=== PATIENT | female | born 1950 | race Caucasian/White ===

== ENCOUNTER → 2017-10-30 | Outpatient (CLI) | payer OTHER, MEDICAID | LOC: FLAB 12:22 | PROVIDERS: ATTEND Specialist | DX: N20.0 Calculus of kidney (principal); Z93.6 Other artificial openings of urinary tract status ==

== ENCOUNTER 2017-12-04 06:21 | Observation (INO) | payer OTHER, MEDICAID ==
[2017-12-04] MEDS ORDERED: ceFAZolin 2 GM/DEXTROSE 100 ML IV ONE (06:47)
[2017-12-04] MEDS ORDERED: LR 1,000 ML IV ONE (06:48)
[2017-12-04] MEDS ORDERED: LIDOCAINE 1% 2 ML INJ ID PRN (06:48)
[2017-12-04] MEDS ORDERED: ceFAZolin 2 GM/SWFI 2 GM/20 ML SYR IVP ONE (07:00)
[2017-12-04] MEDS ORDERED: MINERAL OIL 10 ML VIAL ONE (07:59)
[2017-12-04] MEDS ORDERED: IOPAMIDOL (ISOVUE-300) 100 ML BTL ONE (08:00)
--- NOTE | 2017-12-04 08:41 | PDANEPAE ---
ANE Past Medical History - Cardiovascular History Hx Hypertension: Yes Hx Arrhythmias: No Hx Chest Pain: No Hx Coronary Artery / Peripheral Vascular Disease: No Hx CHF / Valvular Disease: No Hx Palpitations: No - Pulmonary History Hx COPD: No Hx Asthma/Reactive Airway Disease: No Hx Recent Upper Respiratory Infection: No Hx Oxygen in Use at Home: No Hx Sleep Apnea: No Sleep Apnea Screening Result - Last Documented: Positive - Neurologic History Hx Cerebrovascular Accident: No Hx Seizures: No Hx Dementia: No - Endocrine History Hx Diabetes: No - Renal History Hx Renal Disorders: No - Liver History Hx Hepatic Disorders: No - Neurological & Psychiatric Hx Hx Neurological and Psychiatric Disorders: Yes Neurological / Psychiatric History Comment: schitzophrenic, depression - Cancer History Hx Cancer: No - Congenital Disorder History Hx Congenital Disorders: No - GI History Hx Gastrointestinal Disorders: No - Other Health History Other Health History: anemia. pt is C-Diff positive - Chronic Pain History Chronic Pain: Yes (back) - Surgical History Prior Surgeries: back surgery x2 ANE Review of Systems Review of Systems: - Exercise capacity METS (RN): 4 METS ANE Patient History - Allergies Allergies/Adverse Reactions: codeine Allergy (Verified 11/17/17 10:05) Unknown - Home Medications Home Medications: Acetaminophen 11/18/17 [Last Taken Unknown] Acidophilus Capsule 11/18/17 [Last Taken Unknown] Aripiprazole 11/18/17 [Last Taken Unknown] Bethanechol Chloride 11/18/17 [Last Taken Unknown] Cholecalciferol (Vitamin D3) 11/18/17 [Last Taken Unknown] Docusate Sodium 11/18/17 [Last Taken Unknown] Ferrous Sulfate 11/18/17 [Last Taken Unknown] Fluticasone Propionate 11/18/17 [Last Taken Unknown] Furosemide 11/18/17 [Last Taken Unknown] Kaopectate 11/18/17 [Last Taken Unknown] Levothyroxine 11/18/17 [Last Taken Unknown] Metoprolol Tartrate 11/18/17 [Last Taken Unknown] Milk of Magnesia 11/18/17 [Last Taken Unknown] Morphine Sulfate ER 11/18/17 [Last Taken Unknown] Multivitamins 11/18/17 [Last Taken Unknown] Oxycodone HCl 11/18/17 [Last Taken Unknown] Senokot 11/18/17 [Last Taken Unknown] Tums 500MG (*) 11/18/17 [Last Taken Unknown] - NPO status NPO Since - Liquids (Date): 12/03/17 NPO Since - Liquids (Time): 20:00 NPO Since - Solids (Date): 12/03/17 NPO Since - Solids (Time): 20:00 - Smoking Hx Smoking Status: Never smoked - Family Anes Hx Family Hx Anesthesia Complications: none ANE Labs/Vital Signs - Labs Result Diagrams: 12/04/17 06:47 - Vital Signs Blood Pressure: 122/70 Heart Rate: 78 Respiratory Rate: 12 O2 Sat (%): 93 Height: 152.4 cm Weight: 89.811 kg ANE Physical Exam - Airway Mallampati Score: Class 2 Mouth exam: poor dentition - ASA Status ASA Status: III ANE Anesthesia Plan Anesthesia Plan: general endotracheal anesthesia
--- NOTE | 2017-12-04 08:47 | PDHPUP ---
History & Physical Update H&P update statement: This history and physical update is based on an assessment of the patient which was completed after admission or registration (within 24 hours), but prior to the surgery/procedure. H&P update: no change in patient's condition since H&P completed
[2017-12-04] MEDS ORDERED: MIDAZOLAM 2 MG/2 ML VIAL ONE (08:50)
[2017-12-04] MEDS ORDERED: fentaNYL 100 MCG/2 ML INJ ONE ×2 (08:53→12:01)
[2017-12-04] MEDS ORDERED: PROPOFOL 200 MG/20 ML VIAL ONE (08:53)
[2017-12-04] MEDS ORDERED: ONDANSETRON 4 MG/2 ML VIAL ONE ×2 (08:54→12:49)
[2017-12-04] MEDS ORDERED: ROCURONIUM 50 MG/5 ML VIAL ONE (08:54)
[2017-12-04] MEDS ORDERED: METOCLOPRAMIDE 10 MG/2 ML VIAL ONE (08:54)
[2017-12-04] MEDS ORDERED: BACITRACIN ZINC 14.2 GM OINTTUBE TP ONE (10:40)
--- NOTE | 2017-12-04 11:38 | POSTOPPROG ---
Post Op Note Date of Operation: 12/04/17 Surgeon: Britton Cortez (# [id number]) Anesthesia: GET(General Endotracheal) Pre-op Diagnosis: Large volume right nephrolithiasis > 2 cm Post-op Diagnosis: Large volume right nephrolithiasis > 2 cm Procedure: 1. Cysto, balloon catheter placement 2. Right PCNL w/ fluoro guidance Findings: 3. Right neph. tube placement Findings -- see op note Inf/Abcess present in the surg proc area at time of surgery?: No EBL: Minimal Complications: None Drains: Nephrostomy (14 Fr. right) Specimen(s): Right kidney stone
[2017-12-04] MEDS ORDERED: NALOXONE HCL 0.4 MG/ML INJ IVP PRN (11:42)
[2017-12-04] MEDS ORDERED: ONDANSETRON 4 MG/2 ML VIAL IVP PRN (11:42)
[2017-12-04] MEDS ORDERED: fentaNYL 100 MCG/2 ML INJ IVP PRN (11:42)
[2017-12-04] MEDS ORDERED: LR 500 ML IV PRN (11:42)
--- NOTE | 2017-12-04 11:43 | POSTANESTH ---
Post Anesthetic Evaluation Cardiovascular Status: Normal, Stable Respiratory Status: Normal, Stable Level of Consciousness/Mental Status: Can Participate in Eval Pain Control: Adequate, Prn Tx Ordered Nausea/Vomiting Control: Adequate, Prn Tx Ordered Complications Possibly Related to Anesthesia: None Noted
--- NOTE | 2017-12-04 14:10 | GOP ---
[f rep st] OPERATIVE REPORT DATE OF OPERATION: 12/04/2017 SURGEON: Britton Cortez MD ANESTHESIA: General endotracheal. PREOPERATIVE DIAGNOSIS: 1. Bilateral large-volume nephrolithiasis. 2. History of Escherichia coli bacteremia and septic shock, status post bilateral nephrostomy tube placement 3. Clostridium difficile colitis. POSTOPERATIVE DIAGNOSIS: 1. Bilateral large-volume nephrolithiasis. 2. History of Escherichia coli bacteremia and septic shock, status post bilateral nephrostomy tube placement. 3. Clostridium difficile colitis. PROCEDURE PERFORMED: 1. Cystourethroscopy, right retrograde pyelography. 2. Right ureteral balloon occlusion catheter placement. 3. Right percutaneous nephrostolithotomy greater than 2 cm with less than 1 hour of fluoroscopic guidance. 4. Right-sided nephrostomy tube placement. FINDINGS: Large calculus within the right renal pelvis, measuring at least 3 cm in length. Stone was ablated as mentioned in the body of the operative report. SPECIMENS: Right renal calculus fragments. ESTIMATED BLOOD LOSS: Minimal. INDICATIONS: This woman developed E coli bacteremia and septic shock approximately 1 month ago. She was admitted and treated at [facility]. At that time, she was found to have large-volume bilateral nephrolithiasis and underwent bilateral nephrostomy tube placement at that time. She has maintained indwelling nephrostomy tubes during the recovery of her infection. She now presents for operative management of the right-sided renal calculi. She was diagnosed with C difficile colitis approximately 1 week ago and was started on oral vancomycin about 5 days ago. The indications for the procedures as well as potential risks and complications were discussed with the patient and her sister preoperatively. They appeared to understand, their questions were answered, and they wished to proceed. Written informed surgical consent was thereafter obtained. DESCRIPTION OF PROCEDURE: The patient was brought to the operating room and administered general endotracheal anesthesia. She was carefully placed in the dorsal lithotomy position on the cystoscopic table with Viral stirrups. The genital area was sterilely prepped with Betadine scrub and paint, then draped in the usual sterile fashion. There was noted to be significant excoriation of the perineal region in general, including the labia and the medial buttocks region. I performed cystoscopy with a 30-degree lens and a 22-[place]izen [place] sheath. The urethra was unremarkable. Bladder revealed no areas of abnormal erythema, tumors, or foreign bodies. Ureteral orifices were normal in regards to shape and position along the trigone. I used a 5-[place]izen [place] open-ended ureteral catheter to perform retrograde pyelography on the right side using C-arm fluoroscopic guidance. This revealed no abnormalities of the ureter. There was a large filling defect in the renal pelvis consistent with the calculus seen on preoperative imaging. Previously placed nephrostomy tube was seen within a calyx in the lower pole. I then advanced a 0.035 inch superstiff Amplatz guidewire, through the ureteral catheter, and positioned it within the renal collecting system as seen fluoroscopically. The ureteral catheter and cystoscope were then removed while keeping the guidewire in place. A balloon occlusion catheter was then advanced over the Amplatz guidewire using fluoroscopic guidance and positioned just distal to the ureteropelvic junction. The balloon on the occlusion catheter was then inflated. The existing guidewire was then removed. I then placed a 16 -Citizen [place] Abraham catheter into the bladder. The balloon occlusion catheter was then secured to the Abraham using half-inch Steri-Strips. This completed the cystoscopic portion of the procedure. The patient was then turned over into the prone position. All appropriate pressure points were padded. The right back and nephrostomy tube were sterilely prepped and draped in standard fashion. Dr. Wells from Interventional Radiology then proceeded to place a working nephroscopic sheath into the right renal collecting system. He also placed 2 guidewires, one that went down the ureter toward the bladder, and the other was terminating in a right upper pole calyx. Once the nephroscopic working sheath was in place, rigid nephroscopy was performed. I was able to identify the large calculus within the renal pelvis. I used the ultrasonic Lithotripter to fragment the stone. The stone was quite friable and had a chalk-like consistency. I was able to fragment it fairly easily and remove the fragments either through the ultrasonic Lithotripter or with grasping forceps. After removing the stone within the renal pelvis, I used a flexible cystoscope to perform renoscopy. There appeared to be 1 calcification seen on fluoroscopic imaging within another calyx of the lower pole. I attempted to find this calcification, but was unable to visualize it. I examined every visible calyx in the upper pole, mid pole, and upper pole. No significant remaining calculus disease was identified. It is possible that this calcification seen on fluoroscopic imaging was in fact within the renal cortex, as it was not definitively seen within the collecting system. At this point, the scope was removed, as well as the nephroscopic sheath. I advanced a 14-[place] nephrostomy tube, under fluoroscopic guidance, over the guidewire that extended down toward the bladder. The nephrostomy tube was positioned within the renal pelvis and the pigtail deployed at that location. It was locked into place. The nephrostomy tube was flushed and irrigated without complication. It was a light pink return pink. Injection of contrast through the nephrostomy tube confirmed placement within the renal pelvis. The nephrostomy tube was secured to the skin with a 2-0 silk suture. It was then dressed with a ski slope dressing and connected to bag drainage. The ureteral balloon occlusion catheter was then deflated and removed. The Abraham catheter was kept in place. The patient was then turned back over to the supine position. She was awakened, extubated, transferred to her bed, then taken to the recovery room. She tolerated the procedure well overall. COMPLICATIONS: None. DISPOSITION: She was transferred to the recovery room in stable condition and will be admitted to the hospitalist service for postoperative care. Arrangements will then be made by my office for outpatient right-sided nephrostogram and probable right-sided nephrostomy tube removal early next week. Also, at that same time, I will have Interventional Radiology replace the left-sided nephrostomy tube. /[id number]/MODL MTDD
[2017-12-04] MEDS: VANCOMYCIN 125 MG/2.5 ML UDL PO SCH ×3 (15:41→20:19)
[2017-12-04] MEDS ORDERED: BISMUTH SUBSALICYLATE 524 MG/30 ML UDL PO PRN (16:56)
[2017-12-04] MEDS ORDERED: MAGNESIUM HYDROXIDE 30 ML UDCUP PO PRN (16:56)
[2017-12-04] MEDS ORDERED: CALCIUM CARBONATE 500 MG CHEWABLE TAB PO PRN (16:56)
[2017-12-04] MEDS: ceFAZolin 2 GM/SWFI 2 GM/20 ML SYR IVP SCH (17:09)
[2017-12-04] MEDS ORDERED: MAG HYDROX/AL HYDROX/SIMETH 30 ML UDCUP PO PRN (17:15)
[2017-12-04] MEDS ORDERED: ceFAZolin 2 GM/DEXTROSE 100 ML IV SCH (17:30)
[2017-12-04] MEDS: OXYCODONE/APAP 5/325 TAB PO PRN ×2 (18:57→19:40)
[2017-12-04] MEDS: METOPROLOL TARTRATE 25 MG TAB PO SCH (20:19)
[2017-12-04] MEDS: BETHANECHOL 5 MG TAB PO SCH (20:19)
[2017-12-04] MEDS: FERROUS SULFATE 325 MG TAB PO SCH (20:19)
[2017-12-04] MEDS: morphINE SR 15 MG TAB PO SCH (20:19)
[2017-12-04] MEDS: DOCUSATE SODIUM 100 MG CAP PO SCH (20:19)
[2017-12-04] MEDS ORDERED: ARIPiprazole 10 MG TAB PO SCH (21:00)
--- NOTE | 2017-12-04 21:15 | GHP ---
[f rep st] HISTORY AND PHYSICAL DATE OF ADMISSION: 12/04/2017 CHIEF COMPLAINT: Kidney stones. HISTORY OF PRESENT ILLNESS: A pleasant 67-year-old female with history of large volume bilateral kidney stones and E coli bacteremia and septic shock a month ago at [facility], status post bilateral nephrostomy tube placements. Currently on treatment for C difficile colitis. Today, underwent cystourethroscopy, right retrograde pyelography and right renal stone ablation. After hospitalization at [facility], she discharged to rehab and now at home att [facility]. She has a roommate. She has been doing well. No fevers, chills, or sweats. No kidney pain or suprapubic tenderness. She is having soft stools, sometimes up to 6 times a day. No nausea, vomiting. No chest pain or shortness of breath. REVIEW OF SYSTEMS: I completed a 10-point review of systems, negative except as noted in HPI. PAST MEDICAL HISTORY: 1. E coli bacteremia, septic shock at [facility] a month ago due to bilateral kidney stones. 2. C diff colitis, on treatment, bipolar disorder, hypothyroid, schizophrenia, chronic lower back pain, GERD, hypertension. PAST SURGICAL HISTORY: Six back surgeries, bilateral nephrostomy tube placement. SOCIAL HISTORY: Lives in [facility] in [place]. Has a roommate. No alcohol, tobacco, or illicits. FAMILY HISTORY: Noncontributory. HOME MEDICATIONS: Simethicone, herbal supplement, Tums, Milk of Magnesia, Tylenol, bismuth, oxycodone 10 mg q.4 hours p.r.n., MS Carmen Contin 50 mg b.i.d., Urecholine 5 mg t.i.d., metoprolol 25 mg b.i.d., iron 325 mg b.i.d., levothyroxine 125 mcg, Colace, senna, Lasix 40 mg daily, Flonase, multivitamin, vitamin D3. ALLERGIES: Codeine. PHYSICAL EXAMINATION: VITAL SIGNS: Temperature 36.8, blood pressure 120/68, heart rate 74, respirations 16, 91% on 1 L. GENERAL: Obese female, lying in bed with a washcloth on her towel , mildly somnolent, but opens eyes to voice. HEENT: Pupils small, but round and reactive. CV: Regular rate and rhythm. No murmurs, gallops, or rubs. LUNGS: Clear to auscultation bilaterally. ABDOMEN: Soft, nontender, nondistended. Positive bowel sounds. : Bilateral nephrostomy tubes. Abraham in place. MUSCULOSKELETAL: Moving all 4 extremities. NEUROLOGIC: 2 through 12 intact. PSYCH: Alert and oriented x3. Flat affect. LABORATORY DATA: WBCs 5, hemoglobin 10, hematocrit 34, platelets 138. Stone composition pending. I do not have old labs to compare. ASSESSMENT AND PLAN: 1. Bilateral kidney stones: s/p ablation of right kidney stone. She is comfortable at this time. Follow up with Dr. Cortez. 2. History of E coli bacteremia: a month ago at [facility] with septic shock. Currently afebrile, no fevers. 3. C difficile colitis. Continue vancomycin. 4. Hypertension. Home medications. 5. Bipolar disorder. Continue home medications. 6. Gastroesophageal reflux disease. Home medications. 7. Iron-deficiency anemia. She is on iron supplementation. 8. Hypothyroidism. Levothyroxine. 9. Chronic back pain, on morphine, oxycodone. 10. Diet: Regular. 11. DVT prophylaxis: SCDs. DISPOSITION: Patient warrants observation admission given kidney stone ablation. Can likely discharge in the morning if stable. /[id number]/MODL MTDD
[2017-12-05] MEDS: OXYCODONE/APAP 5/325 TAB PO PRN ×2 (00:24→04:30)
[2017-12-05] MEDS: ceFAZolin 2 GM/SWFI 2 GM/20 ML SYR IVP SCH ×2 (00:30→08:10)
[2017-12-05] MEDS ORDERED: NS 500 ML IV ONE (01:55)
[2017-12-05] MEDS: VANCOMYCIN 125 MG/2.5 ML UDL PO SCH (04:57)
[2017-12-05] MEDS: BETHANECHOL 5 MG TAB PO SCH (04:58)
[2017-12-05] MEDS ORDERED: LEVOTHYROXINE 125 MCG TAB PO SCH (06:00)
[2017-12-05 07:28] VITALS: BP 91/57
[2017-12-05] MEDS: morphINE SR 15 MG TAB PO SCH (08:00)
[2017-12-05] MEDS: FERROUS SULFATE 325 MG TAB PO SCH (08:03)
[2017-12-05] MEDS: METOPROLOL TARTRATE 25 MG TAB PO SCH (08:03)
[2017-12-05] MEDS: DOCUSATE SODIUM 100 MG CAP PO SCH (08:06)
[2017-12-05] MEDS ORDERED: MULTIVITAMINS 1 EACH TAB PO SCH (09:00)
[2017-12-05] MEDS ORDERED: FUROSEMIDE 40 MG TAB PO SCH (09:00)
[2017-12-05] MEDS ORDERED: SENNOSIDES/DOCUSATE SODIUM TAB PO SCH (09:00)
[2017-12-05] MEDS ORDERED: Herbals/Supplements -Info Only PO SCH (09:00)
[2017-12-05] MEDS ORDERED: FLUTICASONE NASAL 120 SPRAYS/16 GM MDI EACHNARE SCH (09:00)
--- NOTE | 2017-12-05 11:08 | PDIAF ---
- Diagnosis Diagnosis: Kidney stone extraction, C.difficile Code Status: Full Code - Medication Management Discharge Medications: Medications to Continue on Transfer ARIPiprazole [Abilify 10 mg (*)] 10 mg PO HS 11/18/17 [Last Taken Unknown] Acetaminophen [Tylenol 325mg (*)] 650 mg PO Q4HRS PRN 11/18/17 [Last Taken Unknown] Bethanechol [Urecholine (*)] 5 mg PO TID@05,13,21 11/18/17 [Last Taken Unknown] Bismuth Subsalicylate [KAOPECTATE] 30 ml PO DAILY PRN 11/18/17 [Last Taken Unknown] Cholecalciferol Vit D3 [Vitamin D3 (*)] 50,000 unit PO Q30D 11/18/17 [Last Taken 11/17/17] Docusate Sodium [Colace 100 MG (*)] 100 mg PO BID 11/18/17 [Last Taken Unknown] Ferrous Sulfate [Ferrous Sulf 325 MG (*)] 325 mg PO BID 11/18/17 [Last Taken Unknown] Fluticasone Nasal [Flonase Nasal [facility]] 1 sprays NASAL DAILY 11/18/17 [Last Taken Unknown] Furosemide [Lasix 40 MG (*)] 40 mg PO DAILY 11/18/17 [Last Taken Unknown] Levothyroxine [Synthroid 125 mcg (*)] 125 mcg PO DAILY06 11/18/17 [Last Taken Unknown] Magnesium Hydroxide [Milk of Magnesia] 30 ml PO DAILY PRN 11/18/17 [Last Taken Unknown] Metoprolol Tartrate [Lopressor 25 mg (*)] 25 mg PO BID 11/18/17 [Last Taken Unknown] Multivitamins [Multivitamin (*)] 1 each PO DAILY 11/18/17 [Last Taken Unknown] Sennosides/Docusate Sodium [Senna-S Tablet] 1 each PO DAILY 11/18/17 [Last Taken Unknown] morphINE SR [Ms Contin/Oramorph 15 mg (*)] 15 mg PO BID 11/18/17 [Last Taken Unknown] oxyCODONE IR [Oxycodone Ir (*)] 10 mg PO Q4HRS PRN 11/18/17 [Last Taken Unknown] Herbals/Supplements -Info Only 1 ea PO DAILY 12/04/17 [Last Taken Unknown] Mag Hydrox/Aluminum Hyd/Simeth [Antacid Anti-Gas Liquid] 30 ml PO Q4HRS PRN 08/11 [Last Taken Unknown] Vancomycin [Vancocin Oral Liquid] 125 mg PO QID #40 udl 12/05/17 [Last Taken Unknown] Strategic Development Manager Antibiotics: Vancomycin 125mg PO q6 Strategic Development Manager Antibiotic Stop Date: 12/15/17 Discharge Medications: Refer to the Discharge Home Medication list for PRN reason. PICC Care - Routine: N/A - Orders Services needed: Registered Nurse, Certified Rag Inspector, Physical Therapy, Occupational Therapy Isolation Type: CDIFF Isolation Oxygen: NA Diet Recommendation: no restrictions on diet Abraham: Not applicable Wound Care Instructions: please perform routine nephrostomy tube care - Follow Up Care Current Providers and Referrals: ANA BELTRAN [Primary Care Provider] - Britton Cortez MD [Medical Doctor] - (IR procedure to be scheduled from 12/08, please contact Dr. Cortez's office for time)
--- NOTE | 2017-12-05 11:28 | ASMTCMCOM ---
CM Note CM Note Notes: Pt lives at [facility], she was admitted for removal of a kidney stone. Pt sister coming to pick her up today to return to [place]. DC Plan: Assisted Living/[facility] Date Signed: 12/05/2017 11:28 AM Electronically Signed By:Radha Donovan RN
--- NOTE | 2017-12-05 16:14 | ASDISCHSUM ---
Discharge Information Plan Status:Assisted Living Medically Cleared to Leave: Discharge Date:12/05/2017 11:58 AM CM D/C Disposition:Assisted Living ADT D/C Disposition:Retirement Facility Projected Discharge Date:12/05/2017 11:00 AM Transportation at D/C:Family Discharge Delay Reason: Follow-Up Date:12/05/2017 11:00 AM Discharge Slot: Final Diagnosis: Placement Information Referral Type:*Jail/SNF Referral ID:[id number] Provider Name:[facility], [facility]. Address 1:[address] Address 2: City:[place] Selection Factors: State:[place] Patient Contact Information Contact Name:SHARON Relationship:Sister Address: Home Phone: City: [facility] Phone: [facility] Code: Email: Financial Information Financial Class:Medicare Primary Plan Desc:MEDICARE OUTPATIENT Primary Plan Number:[id number] Secondary Plan Desc:MEDICAID HEALTH FIRST CLIENT SUPPORT PROFESSIONAL Secondary Plan Number:[id number] Assessment Information LACE LACE Comorbidities - select Answers: Opioid dependence all that apply / Chronic pain Other Notes: HTN # of Emergency department Answers: 0 visits in the last 6 months Social determinants Answers: Mental health diagnosis (anxiety, depression, pers onality disorders, etc.) Score: 8 Date Signed: 12/05/2017 11:30 AM Electronically Signed By:Radha Donovan RN [facility] Progress Note CM Deangelo SOSA Note Notes: Pt lives at [facility], she was admitted for removal of a kidney stone. Pt sister coming to pick her up today to return to [place]. DC Plan: Assisted Living/[facility] Date Signed: 12/05/2017 11:28 AM Electronically Signed By:Radha Donovan RN Case Management Discharge Plan Note Case Management Discharge Discharge Order Complete? Answers: Yes Patient to Obtain Answers: Other Notes: AL Medications Transportation Arranged Answers: Family/Friends Faxed Final Orders Answers: Yes Agency/Facility Transfer Answers: Yes Report Printed & Faxed to Receiving Agency Family Notified Answers: Yes Discharge Comments Notes: D/josie FIGUEROA, final orders faxed. Aster at [facility] notified, NAV to call report. Date Signed: 12/05/2017 11:29 AM Electronically Signed By:Radha Donovan RN Intervention Information
--- NOTE | 2017-12-05 18:22 | PDDCSUM ---
Discharge Summary Discharge Summary: DISCHARGE SUMMARY FOLLOW-UP ITEMS: Stone analysis pending DATE OF ADMISSION: 12/04/2017 DATE OF DISCHARGE: 12/05/2017 DISCHARGE DIAGNOSES: 1. Bilateral kidney stones 2. C difficile colitis CONSULTATIONS: Urology PROCEDURES / IMAGING: Right-sided stone extraction CHIEF COMPLAINT: Planned kidney stone extraction SUBJECTIVE: Patient is feeling well at time discharge, she has minimal pain on the right side, she has had several loose bowel movements but they have not been escalating PHYSICAL EXAM ON DISCHARGE: Systolic blood pressure is 90, heart rate 60, afebrile overnight, satting well on room air, alert awake oriented x3, no pain on the right flank, bowel sounds are present, no abdominal tenderness, percutaneous nephrostomy tube in place on right, alert awake oriented x3, lungs are clear to auscultation bilaterally, heart rhythm is regular, no significant lower extremity edema LABS ON DISCHARGE: White blood count 4800, hemoglobin 9.8, platelets 924797, creatinine 0.8, potassium 4.1 HOSPITAL COURSE BY PROBLEM: The patient presented for scheduled right-sided stone extraction by Dr. Chase Cortez. The procedure was performed without complication, and a 3 cm stone was successfully removed. The patient has ongoing bilateral percutaneous nephrostomy tubes, and she will be scheduled for interventional radiology nephrostogram and tube removal as well as left nephrostomy tube replacement this coming Friday. This will be arranged by Dr. Cortez. The patient will receive 10 subsequent days of oral vancomycin per discussion previously with Infectious Disease. The patient is being discharged back to her intermediate facility for physical rehabilitation. She will continue to receive pain medications as needed. DISCHARGE MEDICATIONS: Please see official discharge medication reconciliation sheet in chart , continue home medications with the exception of discontinuing Tums. DISCHARGE INSTRUCTIONS: Please contact the urology office to obtain the exact time of the procedure on Friday.
== END 2017-12-05 11:58 ==
LOC: F1N 06:21 → F3E 13:39
PROVIDERS: ADMIT Specialist; ATTEND Specialist
DX: N20.0 Calculus of kidney (principal); A04.72 Enterocolitis due to Clostridium difficile, not specified as recurrent; F31.9 Bipolar disorder, unspecified; M54.5 Low back pain; K21.9 Gastro-esophageal reflux disease without esophagitis; E03.9 Hypothyroidism, unspecified; D50.9 Iron deficiency anemia, unspecified; F11.20 Opioid dependence, uncomplicated
CPT/HCPCS: 50435; 52353; 74485; C1725; C1758; C1769; C1894; G0378; J0690; J2250; J2405; J2704; J2765; J3010; Q9967; 82365-90

== ENCOUNTER → 2017-12-08 | Day surgery (SDC) | payer OTHER, MEDICAID ==
[~2017-12-08] MED LIST: IOPAMIDOL (ISOVUE-300) 150 ML BTL ONE
== END | disposition home or self-care (01) ==
LOC: FIMAGING 11:54
PROVIDERS: ATTEND Specialist
PROC: 0TP530Z Removal of Drainage Device from Kidney, Percutaneous Approach (ICD-10-PCS; principal; 2017-12-08)
PROC: 0T9130Z Drainage of Left Kidney with Drainage Device, Percutaneous Approach (ICD-10-PCS; principal; 2017-12-08)
DX: Z43.6 Encounter for attention to other artificial openings of urinary tract (principal); N20.0 Calculus of kidney
CPT/HCPCS: 50389; 50432; 74425; 75984; C1729; C1769; Q9967

== ENCOUNTER → 2017-12-26 | Outpatient (CLI) | payer OTHER, MEDICAID | LOC: FIMAGING 09:35 | PROVIDERS: ATTEND Specialist | DX: N20.0 Calculus of kidney (principal); Z93.6 Other artificial openings of urinary tract status ==

== ENCOUNTER 2018-01-08 07:19 | Day surgery (SDC) | payer OTHER, MEDICAID ==
[2018-01-08] MEDS ORDERED: FLUMAZENIL 0.5 MG/5 ML MDV IVP PRN (07:32)
[2018-01-08] MEDS ORDERED: NALOXONE HCL 0.4 MG/ML INJ IVP PRN ×2 (07:32→12:17)
[2018-01-08] MEDS ORDERED: MIDAZOLAM 2 MG/2 ML VIAL IVP PRN (07:32)
[2018-01-08] MEDS ORDERED: fentaNYL 100 MCG/2 ML INJ IVP PRN ×2 (07:32→12:17)
[2018-01-08] MEDS ORDERED: PROTAMINE SULFATE 50 MG/5 ML VIAL IVP PRN (07:32)
[2018-01-08] MEDS ORDERED: MEPERIDINE 25 MG/ML SYR IVP PRN (07:32)
[2018-01-08] MEDS ORDERED: HEPARIN 10,000 UNIT/10 ML MDV (1,000 UNIT/ML) IVP PRN (07:32)
[2018-01-08] MEDS ORDERED: GLUCAGON HCL 1 MG VIAL IVP PRN (07:32)
[2018-01-08] MEDS ORDERED: ALTEPLASE 2 MG VIAL IVP PRN (07:32)
[2018-01-08] MEDS ORDERED: NS 1,000 ML IV SCH (07:45)
[2018-01-08 08:36] LABS: INR 1.07 (0.83-1.16); PROTIME(PATIENT) 14.1 SEC (12.0-15.0)
--- NOTE | 2018-01-08 09:07 | PDGENHP ---
History & Physical Chief Complaint: MULTIPLE RENAL STONES History of Present Illness: HAS HAD A PERC NEPH, WHICH NOW HAS FALLEN OUT. NEED TWO ACCESSES FOR REMOVAL OF ALL STONES Pertinent Past, Social, Family History: LIVES IN A RETIREMENT. BACK SURGERY X 2. Relevant Physical Exam: NO PAIN. Cardiorespiratory Assessment: RRR,CTA
--- NOTE | 2018-01-08 09:07 | PDPROPOC ---
Sedation Plan of Care ASA Classification: ASA 3 Planned drugs: fentanyl, midazolam Mallampati Score: Class 3 Mallampati Reference Image: Patient passed 3-3-2 rule?: Yes
--- NOTE | 2018-01-08 10:21 | PDANEPAE ---
ANE History of Present Illness B renal calculi, here for nephrostomy tubes ANE Past Medical History - Cardiovascular History Hx Hypertension: Yes Hx Arrhythmias: No Hx Chest Pain: No Hx Coronary Artery / Peripheral Vascular Disease: No Hx CHF / Valvular Disease: No Hx Palpitations: No - Pulmonary History Hx COPD: No Hx Asthma/Reactive Airway Disease: No Hx Recent Upper Respiratory Infection: No Hx Oxygen in Use at Home: No Hx Sleep Apnea: No Sleep Apnea Screening Result - Last Documented: Negative - Neurologic History Hx Cerebrovascular Accident: No Hx Seizures: No Hx Dementia: No - Endocrine History Hx Diabetes: Yes Endocrine History Comment: hypothyroidism - Renal History Hx Renal Disorders: Yes Renal History Comment: had bilateral neph tubes placed in 12/10; Left neph tube only - Liver History Hx Hepatic Disorders: No - Neurological & Psychiatric Hx Hx Neurological and Psychiatric Disorders: Yes Neurological / Psychiatric History Comment: schitzophrenic, depression, bipolar , anxiety - Cancer History Hx Cancer: No - Congenital Disorder History Hx Congenital Disorders: No - GI History Hx Gastrointestinal Disorders: Yes Gastrointestinal History Comment: GERD; chronic constipation - Other Health History Other Health History: anemia. C-diff positive 11/2017. chronic back pain - Chronic Pain History Chronic Pain: Yes (back) - Surgical History Prior Surgeries: back surgery x2. neph tubes bx; left side intact ANE Review of Systems Review of Systems: - Exercise capacity Exercise capacity: >=4 METS ANE Patient History - Allergies Allergies/Adverse Reactions: codeine Allergy (Verified 01/07/18 13:07) Unknown - Home Medications Home Medications: ARIPiprazole [Abilify 10 mg (*)] 10 mg PO HS 11/18/17 [Last Taken 01/07/18] Acetaminophen [Tylenol 325mg (*)] 650 mg PO Q4HRS PRN 11/18/17 [Last Taken 01/07] Bethanechol [Urecholine (*)] 5 mg PO TID@05,13,21 11/18/17 [Last Taken 01/07/18] Bismuth Subsalicylate [KAOPECTATE] 30 ml PO DAILY PRN 11/18/17 [Last Taken Unknown] Cholecalciferol Vit D3 [Vitamin D3 (*)] 50,000 unit PO Q30D 11/18/17 [Last Taken 12/18/17] Docusate Sodium [Colace 100 MG (*)] 100 mg PO BID 11/18/17 [Last Taken 01/07/18] Ferrous Sulfate [Ferrous Sulf 325 MG (*)] 325 mg PO BID 11/18/17 [Last Taken ] Fluticasone Nasal [Flonase Nasal [place]] 1 sprays NASAL DAILY 11/18/17 [Last Taken 01/07/18] Furosemide [Lasix 40 MG (*)] 40 mg PO DAILY 11/18/17 [Last Taken 01/07/18] Levothyroxine [Synthroid 125 mcg (*)] 125 mcg PO DAILY06 11/18/17 [Last Taken ] Magnesium Hydroxide [Milk of Magnesia] 30 ml PO DAILY PRN 11/18/17 [Last Taken 12/09/17] Metoprolol Tartrate [Lopressor 25 mg (*)] 25 mg PO BID 11/18/17 [Last Taken ] Multivitamins [Multivitamin (*)] 1 each PO DAILY 11/18/17 [Last Taken 01/07/18] Sennosides/Docusate Sodium [Senna-S Tablet] 1 each PO DAILY 11/18/17 [Last Taken 01/07/18] morphINE SR [Ms Contin/Oramorph 15 mg (*)] 15 mg PO BID 11/18/17 [Last Taken ] oxyCODONE IR [Oxycodone Ir (*)] 10 mg PO Q4HRS PRN 11/18/17 [Last Taken 01/06/18 ] Herbals/Supplements -Info Only 1 ea PO DAILY 12/04/17 [Last Taken 01/07/18] Mag Hydrox/Aluminum Hyd/Simeth [Antacid Anti-Gas Liquid] 30 ml PO Q4HRS PRN 08/11 [Last Taken Unknown] - NPO status NPO Status: no food or drink >8 hours - Anes Hx Anes Hx: no prior problems - Smoking Hx Smoking Status: Never smoked - Alcohol Use Alcohol Use: Rarely - Family Anes Hx Family Anes Hx: none Family Hx Anesthesia Complications: none ANE Labs/Vital Signs - Labs Result Diagrams: 01/08/18 08:05 - Vital Signs Blood Pressure: 131/65 Heart Rate: 74 Respiratory Rate: 16 O2 Sat (%): 92 Height: 152.4 cm Weight: 91.626 kg ANE Physical Exam - Airway Neck exam: FROM Mallampati Score: Class 3 Mouth exam: poor dentition, dentures Mouth image: 1 - dentures - Pulmonary Pulmonary: no respiratory distress - Cardiovascular Cardiovascular: regular rate and rhythym - ASA Status ASA Status: III ANE Anesthesia Plan Anesthesia Plan: general endotracheal anesthesia
[2018-01-08] MEDS ORDERED: ROCURONIUM 50 MG/5 ML VIAL ONE (10:26)
[2018-01-08] MEDS ORDERED: PROPOFOL 200 MG/20 ML VIAL ONE (10:26)
[2018-01-08] MEDS ORDERED: LIDOCAINE 2% 100 MG/5 ML SYR ONE (10:26)
[2018-01-08] MEDS ORDERED: fentaNYL 100 MCG/2 ML INJ ONE (10:26)
[2018-01-08] MEDS ORDERED: IOPAMIDOL (ISOVUE-300) 100 ML BTL ONE (11:27)
[2018-01-08] MEDS ORDERED: oxyCODONE IR 5 MG TAB PO PRN (12:17)
[2018-01-08] MEDS ORDERED: PROMETHAZINE HCL 25 MG/ML INJ IVP PRN (12:17)
[2018-01-08] MEDS ORDERED: ONDANSETRON 4 MG/2 ML VIAL IVP PRN (12:17)
[2018-01-08] MEDS ORDERED: ACETAMINOPHEN 500 MG TAB PO PRN (12:17)
--- NOTE | 2018-01-08 12:17 | POSTANESTH ---
Post Anesthetic Evaluation Cardiovascular Status: Normal, Stable, Similar to Pre-Op Cond Respiratory Status: Normal, Stable, Similar to Pre-op Cond. Level of Consciousness/Mental Status: Can Participate in Eval, Alert and Oriented Pain Control: Adequate, Prn Tx Ordered Nausea/Vomiting Control: Adequate, Prn Tx Ordered Complications Possibly Related to Anesthesia: None Noted
--- NOTE | 2018-01-08 12:48 | PDRADPN ---
Radiology Procedure Note Date of Procedure: 01/08/18 Radiologist: Kareen Patino Anesthesia: GET(General Endotracheal) Pre-op Diagnosis: LT RENAL STONE Post-op Diagnosis: SAME Indication: ACCESS FOR STONE REMOVAL Procedure: PERC NEPHROSTOMY PLACEMENT Finding(s): TWO ACCESSES OBTAINED. Inf/Abcess present in the surg proc area at time of surgery?: No Drains: Nephrostomy
[2018-01-08 14:48] VITALS: BP 129/75
== END 2018-01-08 15:20 ==
LOC: FIMAGING 07:19
PROVIDERS: ATTEND Radiology Diagnostic Radiology
DX: N20.0 Calculus of kidney (principal); K21.9 Gastro-esophageal reflux disease without esophagitis; K59.09 Other constipation; E03.9 Hypothyroidism, unspecified; M54.9 Dorsalgia, unspecified; F20.9 Schizophrenia, unspecified; F31.9 Bipolar disorder, unspecified; F41.8 Other specified anxiety disorders
CPT/HCPCS: 50432; C1729; C1769; J0696; J1644; J2001; J2250; J2310; J2704; J3010; Q9967

== ENCOUNTER 2018-01-14 07:02 | Day surgery (SDC) | payer OTHER, MEDICAID ==
[2018-01-14] MEDS ORDERED: NS 1,000 ML IV SCH (08:30)
[2018-01-14] MEDS ORDERED: IOPAMIDOL (ISOVUE-300) 100 ML BTL ONE (08:59)
[2018-01-14] MEDS ORDERED: LR 1,000 ML IV ONE (10:00)
[2018-01-14] MEDS ORDERED: fentaNYL 100 MCG/2 ML INJ ONE (10:07)
[2018-01-14] MEDS ORDERED: PROPOFOL 200 MG/20 ML VIAL ONE (10:07)
[2018-01-14] MEDS ORDERED: ROCURONIUM 50 MG/5 ML VIAL ONE (10:09)
[2018-01-14] MEDS ORDERED: ONDANSETRON 4 MG/2 ML VIAL ONE (10:09)
[2018-01-14] MEDS ORDERED: LIDOCAINE 2% 5 ML SDV ONE (10:09)
[2018-01-14] MEDS ORDERED: PHENYLEPHRINE HCL 100 MCG/ML SYR ONE (10:20)
[2018-01-14] MEDS ORDERED: NALOXONE HCL 0.4 MG/ML INJ IVP PRN (10:44)
[2018-01-14] MEDS ORDERED: fentaNYL 100 MCG/2 ML INJ IVP PRN (10:44)
[2018-01-14] MEDS ORDERED: LR 500 ML IV PRN (10:44)
[2018-01-14] MEDS ORDERED: PROMETHAZINE HCL 25 MG/ML INJ IVP PRN (10:44)
[2018-01-14] MEDS ORDERED: ONDANSETRON 4 MG/2 ML VIAL IVP PRN (10:44)
[2018-01-14] MEDS ORDERED: SUGAMMADEX SODIUM 200 MG/2 ML VIAL IVP ONE (10:47)
[2018-01-14] MEDS ORDERED: ACETAMINOPHEN 325 MG TAB PO PRN (10:52)
--- NOTE | 2018-01-14 10:54 | PDGENHP ---
History & Physical Chief Complaint: LT renal stones History of Present Illness: s/p perc neph access for stone extraction tomorrow. Re-check position today. Pertinent Past, Social, Family History: n/a. Relevant Physical Exam: lower pole access no longer drains. still flushing through upper pole access. Cardiorespiratory Assessment: rrr, cta
--- NOTE | 2018-01-14 10:56 | PDRADPN ---
Radiology Procedure Note Date of Procedure: 01/14/18 Radiologist: Kareen Patino Anesthesia: GET(General Endotracheal) Pre-op Diagnosis: LT RENAL STONES Post-op Diagnosis: SAME Indication: PERC NEPH CHECK Procedure: NEPHROSTOGRAM; PERC NEPH REPOSITIONING. Finding(s): UPPER POLE ACCESS AT PERIPHERY OF CALYX. LOWER POLE ACCESS OUTSIDE OF CALYX. BOTH RE-POSITIONED INTO PELVIS. Inf/Abcess present in the surg proc area at time of surgery?: No Complications: NONE
--- NOTE | 2018-01-14 11:40 | POSTANESTH ---
Post Anesthetic Evaluation Cardiovascular Status: Normal, Stable, Similar to Pre-Op Cond Respiratory Status: Normal, Stable, Similar to Pre-op Cond. Level of Consciousness/Mental Status: Can Participate in Eval, Mildly Sleepy, Arousable Pain Control: Adequate, Prn Tx Ordered Nausea/Vomiting Control: Adequate, Prn Tx Ordered Complications Possibly Related to Anesthesia: None Noted
[2018-01-14 11:50] VITALS: BP 85/51
== END 2018-01-14 12:10 ==
LOC: FIMAGING 07:02
PROVIDERS: ATTEND Radiology Diagnostic Radiology
DX: N20.0 Calculus of kidney (principal)
CPT/HCPCS: 50435; 75984; C1729; C1758; C1769; J0696; J1644; J2370; J2405; J2704; J3010; Q9967

== ENCOUNTER 2018-01-15 06:45 | Observation (INO) | payer OTHER, MEDICAID ==
--- NOTE | 2018-01-14 10:40 | PDANEPAE ---
ANE Past Medical History - Cardiovascular History Hx Hypertension: Yes Hx Arrhythmias: No Hx Chest Pain: No Hx Coronary Artery / Peripheral Vascular Disease: No Hx CHF / Valvular Disease: No Hx Palpitations: No - Pulmonary History Hx COPD: No Hx Asthma/Reactive Airway Disease: No Hx Recent Upper Respiratory Infection: No Hx Oxygen in Use at Home: No Hx Sleep Apnea: No Sleep Apnea Screening Result - Last Documented: Positive - Neurologic History Hx Cerebrovascular Accident: No Hx Seizures: No Hx Dementia: No - Endocrine History Hx Diabetes: No - Renal History Hx Renal Disorders: No Renal History Comment: bilat stones - Liver History Hx Hepatic Disorders: No - Neurological & Psychiatric Hx Hx Neurological and Psychiatric Disorders: Yes Neurological / Psychiatric History Comment: schitzophrenic, bipolar,depression - Cancer History Hx Cancer: No - Congenital Disorder History Hx Congenital Disorders: No - GI History Hx Gastrointestinal Disorders: No - Other Health History Other Health History: anemia. pt is C-Diff positive. last C-DIFF 12/17 NEGATIVE - Chronic Pain History Chronic Pain: Yes (back) - Surgical History Prior Surgeries: back surgery x2. nephrolithotomy ANE Review of Systems Review of Systems: - Exercise capacity METS (RN): 4 METS ANE Patient History - Allergies Allergies/Adverse Reactions: codeine Allergy (Verified 01/07/18 13:07) Unknown - Home Medications Home Medications: ARIPiprazole [Abilify 10 mg (*)] 10 mg PO HS 11/18/17 [Last Taken 01/07/18] Acetaminophen [Tylenol 325mg (*)] 650 mg PO Q4HRS PRN 11/18/17 [Last Taken 01/07] Bethanechol [Urecholine (*)] 5 mg PO TID@05,13,21 11/18/17 [Last Taken 01/07/18] Bismuth Subsalicylate [KAOPECTATE] 30 ml PO DAILY PRN 11/18/17 [Last Taken Unknown] Cholecalciferol Vit D3 [Vitamin D3 (*)] 50,000 unit PO Q30D 11/18/17 [Last Taken 12/18/17] Docusate Sodium [Colace 100 MG (*)] 100 mg PO BID 11/18/17 [Last Taken 01/07/18] Ferrous Sulfate [Ferrous Sulf 325 MG (*)] 325 mg PO BID 11/18/17 [Last Taken ] Fluticasone Nasal [Flonase Nasal [place]] 1 sprays NASAL DAILY 11/18/17 [Last Taken 01/07/18] Furosemide [Lasix 40 MG (*)] 40 mg PO DAILY 11/18/17 [Last Taken 01/07/18] Levothyroxine [Synthroid 125 mcg (*)] 125 mcg PO DAILY06 11/18/17 [Last Taken ] Magnesium Hydroxide [Milk of Magnesia] 30 ml PO DAILY PRN 11/18/17 [Last Taken 12/09/17] Metoprolol Tartrate [Lopressor 25 mg (*)] 25 mg PO BID 11/18/17 [Last Taken ] Multivitamins [Multivitamin (*)] 1 each PO DAILY 11/18/17 [Last Taken 01/07/18] Sennosides/Docusate Sodium [Senna-S Tablet] 1 each PO DAILY 11/18/17 [Last Taken 01/07/18] morphINE SR [Ms Contin/Oramorph 15 mg (*)] 15 mg PO BID 11/18/17 [Last Taken ] oxyCODONE IR [Oxycodone Ir (*)] 10 mg PO Q4HRS PRN 11/18/17 [Last Taken 01/06/18 ] Herbals/Supplements -Info Only 1 ea PO DAILY 12/04/17 [Last Taken 01/07/18] Mag Hydrox/Aluminum Hyd/Simeth [Antacid Anti-Gas Liquid] 30 ml PO Q4HRS PRN 08/11 [Last Taken Unknown] - Anes Hx Anes Hx: no prior problems - Smoking Hx Smoking Status: Never smoked - Family Anes Hx Family Hx Anesthesia Complications: none ANE Labs/Vital Signs - Vital Signs Height: 152.4 cm Weight: 91.626 kg ANE Physical Exam - Airway Neck exam: decreased ROM Mallampati Score: Class 3 Mouth exam: dentures - Pulmonary Pulmonary: no respiratory distress, no rales or rhonchi, clear to auscultation - Cardiovascular Cardiovascular: regular rate and rhythym, no murmur, rub, or gallop - ASA Status ASA Status: III ANE Anesthesia Plan Anesthesia Plan: general endotracheal anesthesia
[2018-01-15] MEDS ORDERED: MINERAL OIL 10 ML VIAL ONE (07:36)
[2018-01-15] MEDS ORDERED: IOPAMIDOL (ISOVUE-300) 100 ML BTL ONE (07:36)
--- NOTE | 2018-01-15 07:46 | PDANEPAE ---
ANE History of Present Illness urolithiasis ANE Past Medical History - Cardiovascular History Hx Hypertension: Yes Hx Arrhythmias: No Hx Chest Pain: No Hx Coronary Artery / Peripheral Vascular Disease: No Hx CHF / Valvular Disease: No Hx Palpitations: No - Pulmonary History Hx COPD: No Hx Asthma/Reactive Airway Disease: No Hx Recent Upper Respiratory Infection: No Hx Oxygen in Use at Home: No Hx Sleep Apnea: No Sleep Apnea Screening Result - Last Documented: Positive - Neurologic History Hx Cerebrovascular Accident: No Hx Seizures: No Hx Dementia: No - Endocrine History Hx Diabetes: No Endocrine History Comment: hypothyroidism - Renal History Hx Renal Disorders: No Renal History Comment: bilat stones - Liver History Hx Hepatic Disorders: No - Neurological & Psychiatric Hx Hx Neurological and Psychiatric Disorders: Yes Neurological / Psychiatric History Comment: schitzophrenic, bipolar,depression - Cancer History Hx Cancer: No - Congenital Disorder History Hx Congenital Disorders: No - GI History Hx Gastrointestinal Disorders: No Gastrointestinal History Comment: GERD; chronic constipation - Other Health History Other Health History: anemia. pt is C-Diff positive. last C-DIFF 12/17 NEGATIVE - Chronic Pain History Chronic Pain: Yes (back) - Surgical History Prior Surgeries: back surgery x2. nephrolithotomy ANE Review of Systems Review of Systems: - Exercise capacity METS (RN): 4 METS ANE Patient History - Allergies Allergies/Adverse Reactions: codeine Allergy (Verified 01/07/18 13:07) Unknown - Home Medications Home Medications: RX: ARIPiprazole [Abilify 10 mg (*)] 10 mg PO HS 11/18/17 [Last Taken 01/07/18] RX: Acetaminophen [Tylenol 325mg (*)] 650 mg PO Q4HRS PRN 11/18/17 [Last Taken 01/07/18] RX: Bethanechol [Urecholine (*)] 5 mg PO TID@05,13,21 11/18/17 [Last Taken 01/07] RX: Bismuth Subsalicylate [KAOPECTATE] 30 ml PO DAILY PRN 11/18/17 [Last Taken Unknown] RX: Cholecalciferol Vit D3 [Vitamin D3 (*)] 50,000 unit PO Q30D 11/18/17 [Last Taken 12/18/17] RX: Docusate Sodium [Colace 100 MG (*)] 100 mg PO BID 11/18/17 [Last Taken 01/07] RX: Ferrous Sulfate [Ferrous Sulf 325 MG (*)] 325 mg PO BID 11/18/17 [Last Taken 01/07/18] RX: Fluticasone Nasal [Flonase Nasal [place]] 1 sprays NASAL DAILY 11/18/17 [Last Taken 01/07/18] RX: Furosemide [Lasix 40 MG (*)] 40 mg PO DAILY 11/18/17 [Last Taken 01/07/18] RX: Levothyroxine [Synthroid 125 mcg (*)] 125 mcg PO DAILY06 11/18/17 [Last Taken 01/08/18] RX: Magnesium Hydroxide [Milk of Magnesia] 30 ml PO DAILY PRN 11/18/17 [Last Taken 12/09/17] RX: Metoprolol Tartrate [Lopressor 25 mg (*)] 25 mg PO BID 11/18/17 [Last Taken 01/08/18] RX: Multivitamins [Multivitamin (*)] 1 each PO DAILY 11/18/17 [Last Taken ] RX: Sennosides/Docusate Sodium [Senna-S Tablet] 1 each PO DAILY 11/18/17 [Last Taken 01/07/18] RX: morphINE SR [Ms Contin/Oramorph 15 mg (*)] 15 mg PO BID 11/18/17 [Last Taken 01/08/18] RX: oxyCODONE IR [Oxycodone Ir (*)] 10 mg PO Q4HRS PRN 11/18/17 [Last Taken ] RX: Herbals/Supplements -Info Only 1 ea PO DAILY 12/04/17 [Last Taken 01/07/18] RX: Mag Hydrox/Aluminum Hyd/Simeth [Antacid Anti-Gas Liquid] 30 ml PO Q4HRS PRN 12/04/17 [Last Taken Unknown] - Smoking Hx Smoking Status: Never smoked - Family Anes Hx Family Hx Anesthesia Complications: none ANE Labs/Vital Signs - Labs Result Diagrams: 01/15/18 07:35 01/15/18 07:35 - Vital Signs Height: 152.4 cm Weight: 91.626 kg ANE Physical Exam - Airway Neck exam: FROM Mallampati Score: Class 2 Mouth exam: poor dentition, dentures - Pulmonary Pulmonary: no respiratory distress - Cardiovascular Cardiovascular: regular rate and rhythym - ASA Status ASA Status: III ANE Anesthesia Plan Anesthesia Plan: general endotracheal anesthesia
[2018-01-15 07:47] LABS: PLATELET COUNT 170 10^3/uL (150-400)
[2018-01-15] MEDS ORDERED: DEXAMETHASONE 4 MG/ML VIAL ONE (08:00)
[2018-01-15] MEDS ORDERED: ROCURONIUM 50 MG/5 ML VIAL ONE (08:00)
[2018-01-15] MEDS ORDERED: fentaNYL 100 MCG/2 ML INJ ONE ×3 (08:00→11:38)
[2018-01-15] MEDS ORDERED: PROPOFOL 200 MG/20 ML VIAL ONE (08:00)
[2018-01-15] MEDS ORDERED: LIDOCAINE 2% 5 ML SDV ONE (08:00)
[2018-01-15] MEDS ORDERED: ONDANSETRON 4 MG/2 ML VIAL ONE (08:00)
[2018-01-15] MEDS ORDERED: LR 1,000 ML IV ONE (08:11)
--- NOTE | 2018-01-15 08:24 | PDHPUP ---
History & Physical Update H&P update statement: This history and physical update is based on an assessment of the patient which was completed after admission or registration (within 24 hours), but prior to the surgery/procedure. H&P update: changes noted (Pt. 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
[2018-01-15] MEDS ORDERED: HYDROCODONE/APAP 5/325 TAB PO PRN (11:07)
[2018-01-15] MEDS ORDERED: NALOXONE HCL 0.4 MG/ML INJ IVP PRN (11:07)
[2018-01-15] MEDS ORDERED: ONDANSETRON 4 MG/2 ML VIAL IVP PRN ×2 (11:07→11:39)
[2018-01-15] MEDS ORDERED: PROMETHAZINE HCL 25 MG/ML INJ IVP PRN ×2 (11:07→11:39)
--- NOTE | 2018-01-15 11:36 | POSTOPPROG ---
Post Op Note Date of Operation: 01/15/18 Surgeon: Britton Cortez (# [id number]) Anesthesia: GET(General Endotracheal) Pre-op Diagnosis: Large volume left nephrolithiasis (> 2 cm) Post-op Diagnosis: Large volume left nephrolithiasis (> 2 cm) Procedure: Left PCNL > 2 cm w/ fluoro guidance > 1 hr. Findings: See op note Inf/Abcess present in the surg proc area at time of surgery?: No EBL: 50-100 (100 cc) Complications: None Drains: Nephrostomy (14 Fr. on left) Specimen(s): Kidney stone fragments
[2018-01-15] MEDS ORDERED: HYDROmorphONE/DILAUDID 1 MG/ML INJ ONE (11:38)
[2018-01-15] MEDS ORDERED: HYDROmorphONE/DILAUDID 1 MG/ML INJ IVP PRN (11:39)
[2018-01-15] MEDS: fentaNYL 100 MCG/2 ML INJ IVP PRN ×3 (11:40→12:09)
[2018-01-15] MEDS ORDERED: D5W 1/2 NS 1,000 ML IV SCH (11:45)
[2018-01-15] MEDS: HYDROmorphONE/DILAUDID 2 MG/ML INJ IVP PRN ×2 (11:54→12:37)
--- NOTE | 2018-01-15 12:54 | GOP ---
[f rep st] OPERATIVE REPORT DATE OF OPERATION: 01/15/2018 SURGEON: Britton Cortez MD ANESTHESIA: General endotracheal. PREOPERATIVE DIAGNOSIS: Large volume left nephrolithiasis, greater than 2 cm. POSTOPERATIVE DIAGNOSIS: Large volume left nephrolithiasis, greater than 2 cm. PROCEDURE PERFORMED: 1. Percutaneous nephrostolithotomy for greater than 2 cm left nephrolithiasis with fluoroscopic imaging guidance greater than 1 hour. 2. Left-sided nephrostomy tube placement. FINDINGS: Multiple sizable left renal calculi, collectively measuring greater than 2 cm. SPECIMENS: Left renal calculus fragments. ESTIMATED BLOOD LOSS: Approximately 100 cc. INDICATIONS: This woman has been previously found to have large volume bilateral nephrolithiasis. She underwent right-sided percutaneous nephrostolithotomy previously and presents for operative management of the left side at this time. Left-sided nephrostomy had been previously placed by interventional radiology. The indications for the procedures as well as potential risks and complications were discussed with the patient and her sister preoperatively. They appeared to understand, their questions were answered, and they wished to proceed. Written informed surgical consent was thereafter obtained. DESCRIPTION OF PROCEDURE: The patient was brought to the operating room and administered general endotracheal anesthesia. She was carefully placed in the prone position on the operating room table. All appropriate pressure points were thoroughly padded. Before the patient was placed in the prone position, a 16-Cymraes Abraham catheter was placed to bag drainage without complication. The patient's left side, including the previously placed nephrostomy tubes, were prepped and draped in standard fashion. Dr. Patino from Interventional Radiology then proceeded to place a 32-Cymraes working nephroscopic sheath through the lower pole access. She placed a balloon occlusion catheter through the upper pole access and positioned this balloon occlusion catheter at the ureteropelvic junction. I initially inserted the standard rigid nephroscope through the lower pole access sheath. However, the distance between the skin and the stones in the collecting system was too great for me to reach them with this scope. Therefore, I had to switch to a longer bariatric length rigid nephroscope. I was then able to identify 1 large calculus in the renal pelvis. I used rigid grasping forceps to determine how hard it was. It was a relatively soft stone. I was able to fragment a piece of it and remove it, then remove the rest of the stone intact with rigid grasping forceps. Using intermittent C-arm fluoroscopic guidance, there was another dominant large calculus sitting in the upper pole of the kidney. I was initially unable to reach this through the lower pole access. Therefore, Dr. Patino proceeded to dilate the upper pole tract and placed a 2nd working nephroscopic sheath through this upper pole access. I used the rigid nephroscope through this upper pole access but was still unable to visualize the remaining large dominant calculus. It appeared to be sitting within an upper pole calyx, which I could not reach through either access with rigid instruments. Therefore, a flexible cystoscope was used to perform renoscopy. Going through the lower pole access, I was able to reach the dominant remaining calculus in an upper pole calyx. I used a 365 micron holmium laser fiber to fragment this calculus into minute pieces that appeared to be no larger than 1 mm at the conclusion of fragmentation. None of these fragments were retrieved but were flushed using saline. Fluoroscopy at this point revealed 1 remaining calculus that was possibly 5 mm in diameter. It was sitting within another upper pole calyx. I was ultimately able to identify the calyx where the calculus resided. However, the neck to this calculus was extremely small in diameter and could not be penetrated with the flexible scope. Therefore, I did not feel like I could safely remove this stone. I tried accessing this calculus by placing an Amplatz guidewire through the neck of the calyx and tried to follow it with the flexible cystoscope, but this was still unsuccessful. I thus decided to terminate the procedure at this point. Using the upper pole access and the guidewire within it, I placed a 14-Cymraes nephrostomy tube with the aid of fluoroscopic guidance and positioned the pigtail of the nephrostomy tube within the upper portion of the renal pelvis. The pigtail was locked in position and the nephrostomy tube was secured to the skin with 2-0 silk suture. I then removed the lower pole sheath and there was no significant bleeding noted from the tract. Therefore, I decided just to close this with interrupted 2-0 silk suture. The nephrostomy tube was flushed and confirmation within the renal collecting system was confirmed with injection of contrast and fluoroscopic imaging. The nephrostomy tube was connected to bag drainage. It was dressed appropriately with a ski slope dressing, 4 x 4 gauze and Tegaderm. The patient was then turned back over into the supine position. It should be mentioned that prior to closing the lower pole access at the skin level, the balloon occlusion catheter had already been removed. The balloon occlusion catheter had been transferred from the upper pole access to the lower pole access when Dr. Patino had earlier placed a working nephroscopic sheath in the upper pole access location. Once the patient was back in supine position, she was awakened , extubated, transferred to her bed, then taken to the recovery room. She tolerated the procedure well overall. Abraham catheter was left in place. COMPLICATIONS: None. DISPOSITION: She was transferred to the recovery room in stable condition and will be admitted overnight for postoperative care and flushing of her nephrostomy tube. /[id number]/MODL MTDD
[2018-01-15] MEDS ORDERED: HYDROmorphone HCL/NS 0.5 MG/ML SYR IVP PRN (15:30)
[2018-01-15] MEDS: HYDROCODONE/APAP 10/325 TAB PO PRN (15:46)
--- NOTE | 2018-01-15 15:54 | ASMTCMCOM ---
CM Note CM Note Notes: Chart reviewed. Urology procedure earlier today. In contact precautions as she is c-diff positive. Needs to be determined. CM to follow. PLan:TBD Date Signed: 01/15/2018 03:53 PM Electronically Signed By:Ebonie Kelley RN
[2018-01-15] MEDS ORDERED: MAGNESIUM HYDROXIDE 30 ML UDCUP PO PRN (18:16)
[2018-01-15] MEDS ORDERED: BISMUTH SUBSALICYLATE 524 MG/30 ML UDL PO PRN (18:16)
[2018-01-15] MEDS ORDERED: IPRATROPIUM/ALBUTEROL 3 ML DEYVIAL IH PRN (18:16)
[2018-01-15] MEDS ORDERED: guaiFENesin 200 MG/10 ML UDL PO PRN (18:16)
[2018-01-15] MEDS ORDERED: MAG HYDROX/AL HYDROX/SIMETH 30 ML UDCUP PO PRN (18:30)
[2018-01-15] MEDS ORDERED: METHYL SALICYLATE/MENTHOL OINTMENT TP PRN (18:31)
[2018-01-15] MEDS: CALCIUM CARBONATE 500 MG CHEWABLE TAB PO PRN (19:19)
[2018-01-15] MEDS: METOPROLOL TARTRATE 25 MG TAB PO SCH (20:58)
[2018-01-15] MEDS: DOCUSATE SODIUM 100 MG CAP PO SCH (20:58)
[2018-01-15] MEDS: morphINE SR 15 MG TAB PO SCH (20:58)
[2018-01-15] MEDS: BETHANECHOL 5 MG TAB PO SCH (20:59)
[2018-01-15] MEDS: FERROUS SULFATE 325 MG TAB PO SCH (20:59)
[2018-01-15] MEDS: VANCOMYCIN 125 MG/2.5 ML UDL PO SCH (20:59)
[2018-01-15] MEDS ORDERED: ARIPiprazole 10 MG TAB PO SCH (21:00)
[2018-01-15] MEDS: PREGABALIN 150 MG CAP PO SCH (22:09)
[2018-01-16] MEDS: CALCIUM CARBONATE 500 MG CHEWABLE TAB PO PRN (00:23)
[2018-01-16] MEDS: HYDROCODONE/APAP 10/325 TAB PO PRN ×2 (00:32→13:25)
[2018-01-16] MEDS: VANCOMYCIN 125 MG/2.5 ML UDL PO SCH ×2 (05:18→13:05)
[2018-01-16] MEDS: BETHANECHOL 5 MG TAB PO SCH ×2 (05:18→13:05)
[2018-01-16] MEDS ORDERED: LEVOTHYROXINE 125 MCG TAB PO SCH (06:00)
[2018-01-16] MEDS: METOPROLOL TARTRATE 25 MG TAB PO SCH (08:39)
[2018-01-16] MEDS: PREGABALIN 150 MG CAP PO SCH (08:39)
[2018-01-16] MEDS: morphINE SR 15 MG TAB PO SCH (08:40)
[2018-01-16] MEDS ORDERED: MULTIVITAMINS 1 EACH TAB PO SCH (09:00)
[2018-01-16] MEDS ORDERED: SENNOSIDES 1 TAB PO SCH (09:00)
[2018-01-16] MEDS ORDERED: FUROSEMIDE 40 MG TAB PO SCH (09:00)
[2018-01-16] MEDS ORDERED: FLUTICASONE NASAL 120 SPRAYS/16 GM MDI EACHNARE SCH (09:00)
--- NOTE | 2018-01-16 11:34 | SOAPPROG ---
SOAP Progress Note Assessment/Plan: Assessment: POD 1 s/p left PCNL - doing well. Plan: Discharge to [facility]. Outpatient nephrostogram and tube removal in IR next week. Subjective: No complaints. Objective: Vital Signs Temp Pulse Resp BP Pulse Ox 36.6 C 75 16 102/60 95 01/16/18 07:30 01/16/18 07:30 01/16/18 07:30 01/16/18 07:30 01/16/18 07:30 Laboratory Results 01/16/18 04:20 01/16/18 04:20 01/15/18 01/16/18 01/17/18 05:59 05:59 05:59 Intake Total 2282 Output Total 1895 Balance 387 Physical Exam - Physical Exam General Appearance: alert, no apparent distress, obese Abdomen: soft Back: Other (neph. tube draining pink-tinged urine) Neuro/Psych: alert ICD10 Worksheet Patient Problems: Problems Problem Status Onset Renal calculus, left Acute
--- NOTE | 2018-01-16 11:50 | PDIAF ---
- Diagnosis Code Status: Full Code - Medication Management Discharge Medications: Medications to Continue on Transfer ARIPiprazole [Abilify 10 mg (*)] 10 mg PO HS 11/18/17 [Last Taken 01/14/18] Bethanechol [Urecholine (*)] 5 mg PO TID@,,11/18/17 [Last Taken 01/14/18] Bismuth Subsalicylate [KAOPECTATE] 30 ml PO DAILY PRN 11/18/17 [Last Taken Unknown] Cholecalciferol Vit D3 [Vitamin D3 (*)] 50,000 unit PO Q30D 11/18/17 [Last Taken 12/18/17] Docusate Sodium [Colace 100 MG (*)] 100 mg PO BID 11/18/17 [Last Taken 01/07/18] Ferrous Sulfate [Ferrous Sulf 325 MG (*)] 325 mg PO BID@11/18/17 [Last Taken 01/08/18] Fluticasone Nasal [Flonase Nasal [place]] 1 sprays EACHNARE DAILY 11/18/17 [Last Taken 01/14/18] Furosemide [Lasix 40 MG (*)] 40 mg PO DAILY 11/18/17 [Last Taken 01/14/18] Levothyroxine [Synthroid 125 mcg (*)] 125 mcg PO DAILY06 11/18/17 [Last Taken ] Magnesium Hydroxide [Milk of Magnesia] 30 ml PO DAILY PRN 11/18/17 [Last Taken 12/09/17] Metoprolol Tartrate [Lopressor 25 mg (*)] 25 mg PO BID 11/18/17 [Last Taken ] Multivitamins [Multivitamin (*)] 1 each PO DAILY 11/18/17 [Last Taken 01/08/18] morphINE SR [Ms Contin/Oramorph 15 mg (*)] 15 mg PO BID 11/18/17 [Last Taken ] Herbals/Supplements -Info Only 1 ea PO AD 12/04/17 [Last Taken 01/07/18] Mag Hydrox/Aluminum Hyd/Simeth [Antacid Anti-Gas Liquid] 30 ml PO Q4HRS PRN 08/11 [Last Taken Unknown] Vancomycin [Vancocin Oral Liquid] 125 mg PO QID #40 udl 12/05/17 [Last Taken 05:45] Calcium Carbonate [Tums 500MG (*)] 500 mg PO Q4 PRN 01/15/18 [Last Taken Unknown ] Ipratropium/Albuterol [Duoneb (*)] 3 ml IH Q6HRS PRN 01/15/18 [Last Taken Unknown] Methyl Salicylate/Menth/Camph [Bengay Ultra Strength Cream] 1 cuong TP QID PRN [Last Taken Unknown] Pregabalin [Lyrica 150mg (*)] 150 mg PO TID 01/15/18 [Last Taken 01/14/18] Sennosides [Senokot] 8.6 mg PO DAILY 01/15/18 [Last Taken 01/09/18] guaiFENesin [Guaifenesin] 200 mg PO Q4HRS PRN 01/15/18 [Last Taken Unknown] Doxycycline Monohydrate [Avidoxy] 100 mg PO BID 5 Days #10 tablet 01/16/18 [ Last Taken Unknown] HYDROcodone/APAP 10/325 [[place] 10/325 (*)] 1 - 2 tab PO Q6 PRN #20 tab 01/16/18 [Last Taken Unknown] Multivitamins [Multivitamin (*)] 1 each PO DAILY tab 01/16/18 [Last Taken Unknown] Discharge Medications: Refer to the Discharge Home Medication list for PRN reason. PICC Care - Routine: N/A - Orders Services needed: Registered Nurse Isolation Type: CDIFF Isolation Diet Recommendation: no restrictions on diet Diet Texture: Regular Texture Diet Abraham: No Additional Instructions: 1. Make sure nephrostomy tube continues to drain and that tubing does not become kinked. 2. She will need to return to [facility] Interventional Radiology Dept. for nephrostogram and nephrostomy tube removal -- Time & Date TBD. 3. Follow-up w/ Dr. Cortez in [address] scan of abdomen & pelvis -- to arrange following discharge. 4. Continue doxycyline 100 mg BID through 01/20. Rx. on chart. - Follow Up Care Current Providers and Referrals: ANA BELTRAN [Primary Care Provider] -
--- NOTE | 2018-01-16 12:09 | ASMTCMCOM ---
CM Note CM Note Notes: Chart reviewed . Patient has been medically cleared for discharge back to [facility]. Referral and final orders via allscripts. Attempted to call nursing office and left voice mail for them to return call to . Plan: to return to [facility] Date Signed: 01/16/2018 12:09 PM Electronically Signed By:Ebonie Kelley RN
[2018-01-16 12:27] VITALS: BP 104/68
[2018-01-16] MEDS: FERROUS SULFATE 325 MG TAB PO SCH (13:05)
[2018-01-16] MEDS: DOCUSATE SODIUM 100 MG CAP PO SCH (13:08)
--- NOTE | 2018-01-16 13:16 | ASMTCMCOM ---
CM Note CM Note Notes: Final orders faxed to [facility]. [facility] She can transfer via wheelchair without oxygen. CM available should other needs arise. Plan: Back to [place] Date Signed: 01/16/2018 01:15 PM Electronically Signed By:Ebonie Kelley RN
[2018-01-17] MEDS ORDERED: CHOLECALCIFEROL VIT D3 50,000 UNIT CAP PO SCH (09:00)
== END 2018-01-16 14:24 ==
LOC: F3N 06:45 → F1N 12:20
PROVIDERS: ADMIT Specialist; ATTEND Specialist
PROC: 0TC14ZZ Extirpation of Matter from Left Kidney, Percutaneous Endoscopic Approach (ICD-10-PCS; principal; 2018-01-15 08:00)
PROC: 0T9130Z Drainage of Left Kidney with Drainage Device, Percutaneous Approach (ICD-10-PCS; principal; 2018-01-15 08:00)
DX: N20.0 Calculus of kidney (principal); K21.9 Gastro-esophageal reflux disease without esophagitis; E03.9 Hypothyroidism, unspecified; G89.29 Other chronic pain
CPT/HCPCS: 50080; 50432; 74485; 88300; C1725; C1758; C1769; C1894; J0696; J1100; J1170; J1644; J2405; J2704; J3010; Q9967; 82365-90

== ENCOUNTER → 2018-01-20 | Day surgery (SDC) | payer OTHER, MEDICAID ==
[~2018-01-20] MED LIST changes: +IOPAMIDOL (ISOVUE-300) 100 ML BTL ONE; -IOPAMIDOL (ISOVUE-300) 150 ML BTL ONE
--- NOTE | 2018-01-20 08:26 | PDRADPN ---
Radiology Procedure Note Date of Procedure: 01/20/18 Radiologist: Abdulkadir Brewer Pre-op Diagnosis: 5 days post PCNL Post-op Diagnosis: same Indication: assess brian sys patency Procedure: antegrade nephrostogram, PCN removal Finding(s): non dilated left collecting system. no discrete residual calculi. unrestricted antegrade flow to the bladder. Inf/Abcess present in the surg proc area at time of surgery?: No EBL: 0
== END | disposition home or self-care (01) ==
LOC: FIMAGING 07:57
PROVIDERS: ATTEND Specialist
PROC: 0TP5X0Z Removal of Drainage Device from Kidney, External Approach (ICD-10-PCS; principal; 2018-01-20)
PROC: BT121ZZ Fluoroscopy of Left Kidney using Low Osmolar Contrast (ICD-10-PCS; principal; 2018-01-20)
PROC: 3E0K7KZ Introduction of Other Diagnostic Substance into Genitourinary Tract, Via Natural or Artificial Opening (ICD-10-PCS; 2018-01-20)
DX: Z43.6 Encounter for attention to other artificial openings of urinary tract (principal); Z87.442 Personal history of urinary calculi; Z98.890 Other specified postprocedural states
CPT/HCPCS: Q9967

== ENCOUNTER → 2018-01-23 | Outpatient (CLI) | payer OTHER, MEDICAID | LOC: FIMAGING 10:14 | PROVIDERS: ATTEND Specialist | DX: Z09 Encounter for follow-up examination after completed treatment for conditions other than malignant neoplasm (principal); N20.0 Calculus of kidney ==

== ENCOUNTER → 2018-08-05 | Outpatient (CLI) | payer OTHER, MEDICAID | LOC: FIMAGING 11:33 | PROVIDERS: ATTEND Specialist | DX: N20.0 Calculus of kidney (principal); K57.30 Diverticulosis of large intestine without perforation or abscess without bleeding; K44.9 Diaphragmatic hernia without obstruction or gangrene; K59.00 Constipation, unspecified ==